=== PATIENT | female | born 1930 | race Caucasian/White ===

== ENCOUNTER 2016-10-27 15:52 | Emergency (ER) | payer MEDICARE | END 2016-10-27 18:15 | disposition home or self-care (01) | LOC: D.ER 15:52 | DX: S00.03XA Contusion of scalp, initial encounter (principal); W01.0XXA Fall on same level from slipping, tripping and stumbling without subsequent striking against object, initial encounter; Y93.89 Activity, other specified; Y92.129 Unspecified place in nursing home as the place of occurrence of the external cause; S16.1XXA Strain of muscle, fascia and tendon at neck level, initial encounter; G20 Parkinson's disease; E11.9 Type 2 diabetes mellitus without complications ==